=== PATIENT | female | born 1980 | race Caucasian/White ===

== ENCOUNTER 2023-02-22 18:10 | Emergency (ER) | payer BC, SELFPAY ==
--- NOTE | 2023-02-22 18:13 | XRR_ITS ---
PROCEDURE INFORMATION: Exam: XR Chest Exam date and time: 02/22/2023 6:21 PM Age: 42 years old Clinical indication: Cough TECHNIQUE: Imaging protocol: Radiologic exam of the chest. Views: 1 view. COMPARISON: No relevant prior studies available. FINDINGS: Lungs: No consolidation. Pleural spaces: No large pleural effusion. No pneumothorax. Heart/Mediastinum: Unremarkable cardiomediastinal silhouette. Bones/joints: No acute abnormality. XR/XR chest 1V portable [id number] IMPRESSION: No acute findings.
--- NOTE | 2023-02-22 18:14 | ECG_ITS ---
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 Measurements Intervals Kohler Rate: 75 P: 56 WI: 155 QRS: 19 QRSD: 85 T: 56 QT: 375 QTc: 420 Interpretive Statements SINUS RHYTHM LOW QRS VOLTAGE IN PRECORDIAL LEADS [QRS DEFLECTION < 1.0 mV IN CHEST LEADS] Otherwise normal EKG No previous ECG available for comparison Electronically Signed On 02-23-2023 16:58:56 REPLANTER by Belkis Medina M.D. [id number]
[2023-02-22 18:35] VITALS: BP 126/86; PULSE 90; RESP 16; TEMP 37.1; O2SAT 99; BMI 42.9
[2023-02-22 19:08] LABS: Basophils # 0.1 10^3/uL (0.0-0.1); Basophils % 0.7 %; Eosinophils # 0.1 10^3/uL (0.0-0.8); Eosinophils % 0.8 %; Hematocrit 46.6 % (36-47); Lymphocytes # 2.6 10^3/uL (0.8-4.8); Lymphocytes % 21.6 %; Mean Corpuscular HGB Conc 34.5 g/dL (30-55); Mean Corpuscular Hemoglobin 33.8 pg (27-33); Mean Corpuscular Volume 97.9 fl (85-98); Mean Platelet Volume 12.3 fL (7.4-10.4); Monocytes # 0.6 10^3/uL (0.2-0.9); Monocytes % 5.2 %; Neutrophils # 8.67 10^3/uL (1.8-7.7); Neutrophils % 71.2 %; Nucleated Red Blood Cells % 0 %; Platelet Count 52 10^3/cmm (157-399); Red Blood Count 4.76 10^6/uL (3.85-5.65); Red Cell Distribution Width 12.7 % (12.1-15.1); White Blood Count 12.17 10^3/uL (3.29-11.43)
[2023-02-22 19:23] LABS: HCG, Serum Qual Negative (Negative)
[2023-02-22 19:31] LABS: Alanine Aminotransferase 17 U/L (0-33); Albumin Level 4.3 g/dL (3.5-5.2); Alkaline Phosphatase 57 U/L (35-105); Anion Gap 18.5 (5-19); Aspartate Amino Transferase 15 U/L (0-32); Blood Urea Nitrogen 7 mg/dL (6-20); Calcium 9.2 mg/dL (8.5-10.5); Carbon Dioxide 21 mmol/L (22-29); Chloride 99 mmol/L (98-107); Globulin 3.3 g/dL (1.3-4.6); Glomerular Filtration Rate 60.5 mL/min (90-130); Glucose 106 mg/dL (65-115); Osmolality Calculated 278 mOsm/kg (285-295); Potassium 3.5 mmol/L (3.5-5.1); Sodium 135 mmol/L (136-145); Total Bilirubin 0.5 mg/dL (0.15-1.2); Total Protein 7.6 g/dL (6.6-8.7)
--- NOTE | 2023-02-22 19:38 | W.ED.SOB ---
HPI - SOB/Dyspnea General: Chief Complaint: Shortness of Breath/Dyspnea Stated Complaint: sob, throat swelling, near syncope Time Seen by Provider: 02/22/23 18:36 Source: patient Mode of arrival: ambulatory Limitations: no limitations History of Present Illness: HPI Narrative: 42-year-old female states roughly an hour ago she started to feel like her throat was closing states she was having blurred vision shortness of breath and states that she is having tingling in her extremities. She denies any history of panic attacks but states that since all resolved she has some mild mild pain in her throat. She denies any vomiting denies any fevers denies any worsening improving factors. Associated symptoms: Deny abdominal pain, chest pain, fever(s), nausea or vomiting Review of Systems Const: Denies: fever(s), chills, body aches or change in appetite Eyes: Reports: blurry vision; Denies: eye discomfort ENMT: Reports: throat pain; Denies: dental pain Card: Denies: chest pain Resp: Reports: dyspnea GI: Denies: abdominal pain, nausea, vomiting or diarrhea : Denies: dysuria Musc: Denies: neck pain or back pain Skin/Breast: Denies: rash Neuro: Reports: numbness in extremities; Denies: headache(s) [facility] ED Female Reproductive History: Date of last menstrual period: 02/01/23 Physical Exam Const: COMMON NORMALS: no acute distress, patient oriented x3 and healthy appearing HENMT: COMMON NORMALS: normocephalic and atraumatic HEAD & SCALP: normocephalic and atraumatic MOUTH: Normal oral and palatal mucosa present THROAT: posterior oropharynx normal Eye: COMMON NORMALS: Equal, round and reactive pupils present and EOMs intact bilaterally PUPIL: Yes Equal, round and reactive pupils present Neck/C-Spine: COMMON NORMALS: full ROM and supple Chest: COMMONS NORMALS: normal inspection of the chest and normal palpation of entire chest wall Resp: COMMON NORMALS: normal respiratory effort, No retractions, No use of accessory muscles and clear to auscultation bilaterally AUSCULTATION: clear to auscultation bilaterally Cardio: COMMON NORMALS: regular rate, regular rhythm and No murmurs present (Cardio) RATE: regular rate RHYTHM: regular rhythm GI: COMMON NORMALS: Normal to inspection, nondistended, normoactive bowel sounds present, Soft to palpation, non-tender and no masses PALPATION: Yes Soft to palpation Extremity: COMMON NORMALS: normal to inspection and full ROM Neuro: COMMON NORMALS: patient oriented x3, moves all extremities and no focal motor deficits Psych: COMMON NORMALS: mental status grossly normal, Normal thought process present and cooperative THOUGHT PROCESS: Normal thought process present Skin: COMMON NORMALS: no rashes or lesions noted and no wounds GENERAL SKIN EXAM: no rashes or lesions noted Course Vital Signs: Vital signs: Vital Signs Temperature 98.7 F 02/22/23 18:35 Pulse Rate 75 02/22/23 20:01 Respiratory Rate 18 02/22/23 20:01 Blood Pressure 113/68 02/22/23 20:01 Pulse Oximetry 94 02/22/23 20:01 Oxygen Delivery Me thod Room Air 02/22/23 20:01 MDM - SOB/Dyspnea Medical Decision Making Patient presents here with dyspnea along with paresthesias feeling her throat is closing sound like an anxiety attack all of her symptoms are completely resolved she is been well-appearing here blood work here is all normal she is well-appearing here and she is stable for discharge. Medical Records I reviewed the patient's medical records. Lab Data I reviewed the patient's lab results. 02/22/23 18:45 02/22/23 18:45 Labs/Radiology: Radiology Impressions Chest X-Ray 02/22/23 18:13 IMPRESSION: No acute findings. Laboratory Results WBC 12.17 10^3/uL (3.29-11.43) H 02/22/23 18:45 RBC 4.76 10^6/uL (3.85-5.65) 02/22/23 18:45 Hgb 16.10 g/dL (11.27-16.99) 02/22/23 18:45 Hct 46.6 % (36-47) 02/22/23 18:45 MCV 97.9 fl (85-98) 02/22/23 18:45 MCH 33.8 pg (27-33) H 02/22/23 18:45 MCHC 34.5 g/dL (30-55) 02/22/23 18:45 RDW 12.7 % (12.1-15.1) 02/22/23 18:45 Plt Count 52 10^3/cmm (157-399) L 02/22/23 18:45 MPV 12.3 fL (7.4-10.4) H 02/22/23 18:45 Neut % (Auto) 71.2 % 02/22/23 18:45 Lymph % (Auto) 21.6 % 02/22/23 18:45 Tyrrell % (Auto) 5.2 % 02/22/23 18:45 Eos % (Auto) 0.8 % 02/22/23 18:45 Baso % (Auto) 0.7 % 02/22/23 18:45 Neut # (Auto) 8.67 10^3/uL (1.8-7.7) H 02/22/23 18:45 Lymph # (Auto) 2.6 10^3/uL (0.8-4.8) 02/22/23 18:45 Tyrrell # (Auto) 0.6 10^3/uL (0.2-0.9) 02/22/23 18:45 Eos # (Auto) 0.1 10^3/uL (0.0-0.8) 02/22/23 18:45 Baso # (Auto) 0.1 10^3/uL (0.0-0.1) 02/22/23 18:45 Nucleated RBC % (auto) 0 % 02/22/23 18:45 Nucleated RBCs # 0.0 /100WBC 02/22/23 18:45 Sodium 135 mmol/L (136-145) L 02/22/23 18:45 Potassium 3.5 mmol/L (3.5-5.1) 02/22/23 18:45 Chloride 99 mmol/L (98-107) 02/22/23 18:45 Carbon Dioxide 21 mmol/L (22-29) L 02/22/23 18:45 Anion Gap 18.5 (5-19) 02/22/23 18:45 BUN 7 mg/dL (6-20) 02/22/23 18:45 Creatinine 1.0 mg/dL (0.5-0.9) H 02/22/23 18:45 GFR Calculation 60.5 mL/min (90-130) L 02/22/23 18:45 Glucose 106 mg/dL (65-115) 02/22/23 18:45 Calculated Osmolality 278 mOsm/kg (285-295) L 02/22/23 18:45 Calcium 9.2 mg/dL (8.5-10.5) 02/22/23 18:45 Total Bilirubin 0.5 mg/dL (0.15-1.2) 02/22/23 18:45 AST 15 U/L (0-32) 02/22/23 18:45 ALT 17 U/L (0-33) 02/22/23 18:45 Alkaline Phosphatase 57 U/L (35-105) 02/22/23 18:45 Total Protein 7.6 g/dL (6.6-8.7) 02/22/23 18:45 Albumin 4.3 g/dL (3.5-5.2) 02/22/23 18:45 Globulin 3.3 g/dL (1.3-4.6) 02/22/23 18:45 HCG, Qual Negative (Negative) 02/22/23 18:45 SARS-CoV-2 Ag (Rapid) negative (Negative) 02/22/23 19:40 Group A Strep Rapid Negative (Negative) 02/22/23 19:40 All radiology interpretation(s) finalized by discharge EKG Data EKG 1: I personally reviewed and interpreted this EKG as follows: EKG Interpretation Date: 02/22/23 EKG interpretation time: 19:08 Interpretation: nsr hr [address] or t wave abnormalities qrs 85 qtc 404 Discharge Plan Discharge Patient Disposition: Home Clinical Impression: Shortness of breath Condition: Stable Discharge Orders: Discharge ED (Routine); Ordered 02/22/23 Ordered By: Daniel Santillan Discharge Diet: Advance as tolerated Discharge Activity: Resume usual activity Patient Instructions: Shortness of Breath (ED) Coding Level of Care Code ED Sr Vice President for Dontae Espinosa
[2023-02-22 20:01] VITALS: BP 113/68; PULSE 75; RESP 18; O2SAT 94
[2023-02-22 20:08] LABS: SARS Covid-2 Antigen negative (Negative)
[2023-02-22 20:11] LABS: Rapid Strep A Test Negative (Negative)
[2023-02-22 20:31] VITALS: BP 113/68; PULSE 78; RESP 18; O2SAT 95
== END 2023-02-22 20:33 | disposition home or self-care (01) ==
PROVIDERS: Emergency Provider Emergency Medicine
DX: R06.02 Shortness of breath (principal); Z11.52 Encounter for screening for COVID-19
CPT/HCPCS: 36415; 71045; 80053; 84703; 85025; 87081; 87426; 87880; 93005; 99285